=== PATIENT | male | born 1960 | race Caucasian/White ===

== ENCOUNTER → 2023-08-19 10:21 | Outpatient (REF) | payer OTHER, SELFPAY ==
[2023-08-19 12:15] LABS: Glucose 172 mg/dl (70-99)
[2023-08-19 13:11] LABS: Glycohemoglobin (HgbA1c) 7.2 % (4.0-5.6)
[2023-08-19 19:12] LABS: Prolactin 3.9 ng/ml (3.7-17.9)
== END ==
LOC: OLABN 10:21
PROVIDERS: ATTENDING PHYSICIAN Internal Medicine Geriatric Medicine
DX: E11.649 Type 2 diabetes mellitus with hypoglycemia without coma (principal); E22.1 Hyperprolactinemia
CPT/HCPCS: 36415; 82947; 83036; 84146

== ENCOUNTER → 2023-11-18 11:58 | Outpatient (REF) | payer OTHER, SELFPAY ==
[2023-11-18 12:44] LABS: Glycohemoglobin (HgbA1c) 7.7 % (4.0-5.6)
[2023-11-18 13:12] LABS: Glucose 148 mg/dl (70-99)
[2023-11-18 13:24] LABS: Prolactin 5.2 ng/ml (3.7-17.9)
== END ==
LOC: OLABN 11:58
PROVIDERS: ATTENDING PHYSICIAN Internal Medicine Geriatric Medicine
DX: E11.649 Type 2 diabetes mellitus with hypoglycemia without coma (principal); E11.9 Type 2 diabetes mellitus without complications; E22.1 Hyperprolactinemia
CPT/HCPCS: 36415; 82947; 83036; 84146

== ENCOUNTER 2023-12-17 12:49 | Inpatient (IN) | payer OTHER, SELFPAY ==
[2023-12-17] VITALS (10 sets, daily range): BP systolic 112–171; BP diastolic 65–90
--- NOTE | 2023-12-17 08:57 | ED.GENMED ---
History of Present Illness
General
Chief Complaint: Fall
Source: patient and ambulance crew
Exam Limitations: none
Time Seen by Provider: 12/17/23 08:46
Nursing documentation reviewed up to this point in time: agreed with
Travel History
Have you had any contact with someone who has COVID-19?: No
Do you have any symptoms of coronavirus? Fever > 100 degrees, chills, cough, shortness of breath, sore throat, loss of taste or smell, muscle aches, or headache?: No
History of Present Illness
History of Present Illness:
63-year-old male with a past medical history as documented notable for hypertension, hyperlipidemia, CHF, obesity who presents to the emergency room from his assisted living facility for evaluation of left hip/groin pain. Patient reports that he
occasionally ambulates at with a walker but is mostly in wheelchair at baseline. Today while he was cleaning his wheelchair he went to sit back down and missed the chair and fell onto his left hip. Unsure if he hit his head. No loss of
consciousness. He says that he injured his left hip/groin. EMS was called to the scene given patient to the hospital for assessment. He denies any headache or neck pain. Denies any back pain. He denies any chest or abdominal pain. He denies
any pain in his arms. His only complaint is pain in the left hip/groin. He is on Plavix.
Past History
Past History
ED Past Medical History: CVA, GERD, HTN, Hypercholesterolemia, IDDM, Psychiatric (Manic-depressive psychosis, anxiety) and Other (Anterior pituitary hyperfunction, psoriasis, keratosis)
ED Past Surgical History: Appendectomy
Social History
Tobacco: Non-smoker
Alcohol: None
Drug: None
Personal: Single
Living: alf
Employment: Disabled
Family History
Family History: Other (Noncontributory)
Review of Systems
Review of Systems
All Other Systems: ROS reviewed and negative except as documented in HPI and ROS
Constitutional: Denies fever
Respiratory: Denies cough or trouble breathing
Cardiac: Denies chest pain
ABD/GI: Denies abdominal pain, nausea or vomiting
: Denies flank pain
Musculoskeletal: Reports joint pain (Left hip/groin pain); Denies neck pain or back pain
Neurological: Denies headache
Phy Exam
Physical Exam
Physical Exam:
General: Awake, alert, oriented x3; no acute distress
Head: Normocephalic, atraumatic
Eyes: Conjunctiva normal, pupils equal round and reactive to light bilaterally
Throat: Airway intact, handling secretions, tongue atraumatic
Neck: Trachea midline, no cervical spine tenderness
Back: No signs of trauma to the back or flank and no tenderness in the thoracic or lumbar spine
Lungs: Clear to auscultation bilaterally, no wheezing, rales, rhonchi
Heart: Regular rate and rhythm, no murmurs, gallops, or rubs
Abd: Soft, non distended, nontender
Neuro: Cranial nerves grossly intact, speech fluid
Skin: no lacerations or abrasions
Extremities: Left lower extremity is shortened and externally rotated; significant pain with attempts at range of motion of the left hip even with slight attempts at internal/external rotation; the rest of his extremities are atraumatic and
nontender; he has good strong pulses in all extremities specifically a strong left DP pulse
Scores
Heart Failure Risk
Heart Failure Risk Score: Not Applicable
Heart Score for Chest Pain Patients
STEMI patient?: Not applicable
Withdrawal Assessment of Alcohol
Withdrawal Assessment Completed?: Not applicable
Course
Orders/Labs/Results
Orders:
Orders
12/17/23 08:53
Electrocardiogram (*1) Urgent
Reason for Study: PreOp
CT Head W/o Iv Contrast Urgent
Comment:
Reason For Exam: fall on plavix
EKG- Treatment ONCE
CR Hip - LT w/wo Pel 2-3 Vw* Urgent
Comment:
Reason For Exam: left hip pain, short/ext rotated
Include a pelvis x-ray?: Yes
12/17/23 08:58
Complete Blood Count/With Diff Urgent
Comprehensive Metabolic Panel Urgent
PTT Urgent
Prothrombin Time Urgent
Abnormal Lab Results
12/17/23
08:58
Abs Immat Gran (auto) 0.1 H 10^3/uL
(0-0.05)
Immature Gran % 1.0 H %
(0-0.5)
Lymphocytes % 16.0 L %
(20.5-51.1)
Glucose 148 H mg/dl
(70-99)
12/17/23 08:58
12/17/23 08:58
Vital Signs
Initial and Last Documented VS:
Initial Vital Signs
Temp Pulse Resp BP Pulse Ox
36.7 C 65 20 128/77 93
12/17/23 08:46 12/17/23 08:46 12/17/23 08:46 12/17/23 08:46 12/17/23 08:46
Last Documented Vital Signs
Temp Pulse Resp BP Pulse Ox
36.7 C 65 20 128/77 93
12/17/23 08:46 12/17/23 08:46 12/17/23 08:46 12/17/23 08:46 12/17/23 08:46
MDM/Problems Addressed
Differential Diagnosis Includes:
Left groin injury, left hip fracture, left hip dislocation
MDM/Problems Addressed:
63-year-old male presents for evaluation after a mechanical fall while he was transferring to wheelchair�injured his left hip/groin. Unsure of head trauma but did not lose consciousness. He is on Plavix. Vital signs normal. Exam as above. Will
check x-ray of the hip to evaluate for fracture�high clinical suspicion based on exam. Will check basic labs, screening EKG. Send for CT head. Will monitor closely reassess after the above.
X-ray of the hip reviewed independently by me shows left hip fracture. CT head no acute pathology. CBC and CMP unremarkable. Case discussed with orthopedics for evaluation. Case discussed with hospitalist for admission.
Chronic conditions affecting care:
History of stroke and is on Plavix which complicates his fall
*Radiology
Radiology exam reviewed: preliminary read by ED provider and radiology read reviewed
*Pulse Oximetry
Patient hypoxic: no
*EKG
Interpreted by ED Provider?: Yes
Heart Rate: 69
Rate: normal
Rhythm: sinus
[place]: normal axis
Interval: normal interval
QRS Pattern: normal QRS
Ischemia: other (Septal infarct age undetermined)
*Critical Care Note
Total Time (30-74mins, 75-104mins- exclusive of procedures): Not Applicable
Data Reviewed
Source: patient and ambulance crew
Patient Management
Discussion with other providers: Hospitalist (Discussed with hospitalist) and Drive Man (Discussed with orthopedics)
Escalation/DeEscalation of care consider admission/obs:
Admission indicated
ED Attending Note
-
Portions of this chart may have been created with voice recognition software.� Occasional wrong word or��sound alike� substitutions may have occurred due to the inherent limitations of voice recognition software.
Discharge Plan
Departure
Patient Disposition: Admit
Date of Disposition: 12/17/23
Time of Disposition: 09:36
Admit to doctor: Jimmy
Presentation/result/management discussed w/ accepting MD/DO: Hospitalist
Discharge Problem:
Closed fracture of left hip
Prescriptions:
No Action
atorvastatin 80 MG tablet
40 mg PO QPM
gabapentin 600 MG tablet
600 mg PO TID
metoprolol succinate 50 MG tablet extended release 24 hr
100 mg PO DAILY
lisinopril [Zestril] 20 MG tablet
20 mg PO DAILY
clonazepam 0.5 MG tablet
0.5 mg PO BID
calcium carbonate [Antacid Extra-Strength] 1 TABLET tablet,chewable
750 mg PO BID
clopidogrel 75 MG tablet
75 mg PO DAILY
dextromethorphan-guaifenesin 5 ML syrup
5 ml PO Q4HPRN PRN (Reason: Cough)
aspirin 81 MG tablet,delayed release (DR/EC)
81 mg PO DAILY
citalopram 20 MG tablet
20 mg PO DAILY
tamsulosin 0.4 MG capsule
0.4 mg PO QPM
gabapentin 800 MG tablet
800 mg PO TID
amlodipine 10 MG tablet
10 mg PO DAILY
cabergoline [Dostinex] 0.5 MG tablet
0.5 mg PO .EVERYOTHERWEDN
nitroglycerin 0.4 MG tablet, sublingual
0.4 mg sublingual [id number] PRN (Reason: Chest pain)
docusate sodium 100 MG capsule
200 mg PO DAILY
cholecalciferol (vitamin D3) 2,000 UNIT tablet
2,000 unit PO DAILY
sennosides-docusate sodium [Senna Plus] 1 EACH tablet
1 ea PO QPM
amitriptyline 50 MG tablet
50 mg PO QPM
famotidine 20 MG tablet
20 mg PO HS
omeprazole [Prilosec] 10 MG capsule,delayed release(DR/EC)
20 mg PO DAILY
insulin aspart U-100 [Novolog U-100 Insulin aspart] 1,000 UNITS/10 ML solution
4 units SC AC
montelukast 10 MG tablet
10 mg PO QPM
peg 400-propylene glycol (PF) [Systane (PF)] 1 EACH dropperette
1 ea OP BID
insulin glargine [Basaglar KwikPen U-100 Insulin] 100 UNIT/ML insulin pen
22 unit SQ HS
cholecalciferol (vitamin D3) 2,000 UNIT tablet
2,000 unit PO DAILY
psyllium husk [Reguloid (psyllium husk)] 426 GM powder
3.4 gm PO DAILY
acetaminophen 325 MG tablet
650 mg PO Q4HPRN PRN (Reason: pain)
hydrocortisone 1 APPLIC ointment
1 applic topical TIDPRN PRN (Reason: psoriasis)
magnesium hydroxide 30 ML suspension
30 ml PO HSPRN PRN (Reason: constipation )
nystatin-triamcinolone 1 APPLIC cream
1 applic S BIDPRN PRN (Reason: tinea pedis)
metformin 500 MG tablet
1,000 mg PO QPM Qty: 0 0RF
Rx Instructions:
Hold post cath, resume on Saturday eveningn 05/29
isosorbide mononitrate 30 MG tablet extended release 24 hr
30 mg PO DAILY Qty: 1 0RF
Referrals:
Declan Trent MD [Family Provider] -
Interventions
Interventions:
*Risk Screen - Suicide Last Done: 12/17/23 08:53
*General Assessment Last Done: 12/17/23 08:53
*Neglect/Abuse Screening Last Done: 12/17/23 08:53
ED- Fall Risk Assessment Last Done: 12/17/23 08:53
*ED COVID-19 Vaccine History Last Done: 12/17/23 08:53
ED-Musculoskeletal Assessment Last Done: 12/17/23 08:53
ED-Skin Assessment Last Done: 12/17/23 08:53
Discharge Date and Time
Print Language: ARABIC
[2023-12-17 09:14] LABS: % Basophils 0.7 % (0-2); % Eosinophils 4.6 % (0-6); % Monocytes 6.5 % (1.7-9.3); % Neutrophils 71.2 % (42.2-75.2); Absolute Basophils 0.1 10^3/uL (0-0.2); Absolute Eosinophils 0.4 10^3/uL (0-0.7); Absolute Immature Granulocytes 0.1 10^3/uL (0-0.05); Absolute Lymphocytes 1.5 10^3/uL (1.2-3.4); Absolute Monocytes 0.6 10^3/uL (0.1-0.6); Absolute Neutrophils 6.5 10^3/uL (1.4-6.5); Hematocrit 46.5 % (39.0-52.0); Hemoglobin 16.5 g/dL (13.0-18.0); Mean Corp Hgb Conc. 35.5 g/dL (33.0-37.0); Mean Corpuscular Hgb 30.8 pg (27.0-31.0); Mean Corpuscular Volume 86.9 fL (80.0-94.0); Mean Platelet Volume 9.8 fL (7.4-10.4); Nucleated Red Blood Cells % 0 % (-); Platelet Count 220 10^3/uL (130-400); Red Blood Cell Count 5.35 10^6/uL (4.70-6.10); Red Cell Dist. Width 13.4 % (11.5-14.5); White Blood Cell Count 9.1 10^3/uL (4.8-10.8)
[2023-12-17 09:21] LABS: INR 0.99; PT 12.9 Sec (11.4-14.6)
[2023-12-17 09:22] LABS: APTT 31.3 Sec (23.4-35.0)
[2023-12-17 09:31] LABS: ALT (SGPT) 30 U/L (0-50); AST (SGOT) 26 U/L (17-59); Albumin 4.4 g/dl (3.5-5.0); Alkaline Phosphatase 107 U/L (38-126); Blood Urea Nitrogen 11 mg/dl (9-20); Calcium 9.2 mg/dl (8.4-10.2); Carbon Dioxide 27 mmol/L (22-30); Chloride 102 mmol/L (98-107); Glucose 148 mg/dl (70-99); Sodium 138 mmol/L (135-145); Total Bilirubin 0.5 mg/dl (0.2-1.3); Total Protein 7.3 g/dl (6.3-8.2); eGFR > 60.00
[2023-12-17] MEDS: MORPHINE SULFATE 4 MG IV (09:50)
--- NOTE | 2023-12-17 11:38 | HPS.HSE ---
Family Physician
-
Family Physician: Declan Trent
Chief Complaint
-
Left hip fracture
History of Present Illness
63 y/o M with PMHx:
DM2
h/o ND
Intermittent hypoxemic respiratory insufficiency due to allergies
h/o CVA
Essential hypertension
who p/w mechanical fall resulting in a left femur fracture. Patient denies any loss of consciousness. This was a mechanical fall. Patient ambulates feel wheelchair and walker. At these times he denies any chest pain or shortness of breath.
Currently denies any chest pain or shortness of breath. Says he has some diarrhea. Denies any other acute complaints.
Medical History
Past Medical History
Past Medical History: Reports Other (as per HPI)
Past Surgical History: Reports Other (N/A)
Social History
Tobacco: Non-smoker
Alcohol: None
Drug: None
Family History
Family History: Not pertinent
Allergies / Home Medications
Allergies reflects when Allergies were last updated in [facility].
Home Medications with original date entered in [facility]
Allergy/Medication List:
Allergies
Allergy/AdvReac Type Severity Reaction Status Date / Time
No Known Allergies Allergy Verified 12/17/23 08:52
Home Medications
amlodipine 10 mg tablet 10 mg PO DAILY Blood Pressure 10/07/17
citalopram 20 mg tablet 20 mg PO DAILY Mental Health 10/07/17
clonazepam 0.5 mg tablet 0.5 mg PO BID Mental Health/Anxiety 10/07/17
clopidogrel 75 mg tablet 75 mg PO DAILY Blood Clot Prevention/Tx 10/07/17
gabapentin 800 mg tablet 800 mg PO TID Pain 10/07/17
lisinopril 20 mg tablet (Zestril) 20 mg PO DAILY Blood Pressure 10/07/17
nitroglycerin 0.4 mg sublingual tablet 0.4 mg sublingual [id number] PRN Chest pain 10/07/17
tamsulosin 0.4 mg capsule 0.4 mg PO QPM Urinary Issue 10/07/17
acetaminophen 325 mg tablet 650 mg PO Q4HPRN PRN mild pain 05/27/19
amitriptyline 50 mg tablet 50 mg PO HS Neurological Condition 05/27/19
famotidine 20 mg tablet 20 mg PO DAILY Gastrointestinal Issue 05/27/19
insulin aspart U-100 100 unit/mL subcutaneous solution (Novolog U-100 Insulin aspart) 6 units SC AC Diabetes 05/27/19
insulin glargine 100 unit/mL (3 mL) subcutaneous pen (Basaglar KwikPen U-100 Insulin) 32 unit SQ HS Diabetes 05/27/19
atorvastatin 10 mg tablet 10 mg PO QPM High Cholesterol 12/17/23
cabergoline 0.5 mg tablet 0.25 mg PO TU@1830 Neurological Condition 12/17/23
cholecalciferol (vitamin D3) 1,250 mcg (50,000 unit) tablet 1,250 mcg PO QMONTH Supplement 12/17/23
dextromethorphan-guaifenesin 10 mg-100 mg/5 mL oral liquid (Diabetic Tussin DM) 10 ml PO Q4HPRN PRN cough 12/17/23
ferrous sulfate 325 mg (65 mg iron) tablet 325 mg PO MOWEFR Supplement 12/17/23
fluticasone propionate 50 mcg/actuation nasal spray,suspension 1 spray intranasal DAILY Congestion 12/17/23
gabapentin 400 mg capsule 400 mg PO TID Pain 12/17/23
isosorbide mononitrate 30 mg tablet,extended release 24 hr 30 mg PO DAILY Heart Disease/Condition 12/17/23
magnesium hydroxide 400 mg/5 mL oral suspension (Milk of Magnesia) 30 ml PO HSPRN PRN constipation 12/17/23
melatonin 3 mg tablet 3 mg PO HS Sleep 12/17/23
metformin 500 mg tablet,extended release 24 hr 1,000 mg PO QPM Diabetes 12/17/23
metoprolol succinate 100 mg tablet,extended release 24 hr 100 mg PO DAILY Blood Pressure 12/17/23
sodium chloride 0.65 % nasal spray aerosol (Saline Nasal Mist) 1 spray intranasal Q1HPRN PRN CONGESTION 12/17/23
triamcinolone acetonide 0.1 % topical cream 1 applic topical BIDPRN PRN eczema 12/17/23
Review of Systems
-
History Source: Patient
A 12 point ROS was completed and negative except as noted: Yes
Physical Exam
Vital Signs
Vital Signs
Temp Pulse Resp BP Pulse Ox
98.1 F 65 12 128/78 91
12/17/23 08:46 12/17/23 10:30 12/17/23 10:30 12/17/23 10:00 12/17/23 10:30
Physical Exam
General: Other (.)
Laboratory Results
-
12/17/23 08:58
12/17/23 08:58
Laboratory Results
PT 12.9 Sec (11.4-14.6) 12/17/23 08:58
INR 0.99 12/17/23 08:58
APTT 31.3 Sec (23.4-35.0) 12/17/23 08:58
Total Bilirubin 0.5 mg/dl (0.2-1.3) 12/17/23 08:58
AST 26 U/L (17-59) 12/17/23 08:58
ALT 30 U/L (0-50) 12/17/23 08:58
Alkaline Phosphatase 107 U/L (38-126) 12/17/23 08:58
Impression/Plan
-
Gen: NAD, AAOx3.
Eyes: EOMI, PERRLA, no scleral icterus.
Neck: supple.
CV: RRR, +S1/S2, no m/r/g.
Resp: CTAB, no rales, wheezes, or rhonchi.
Abd: +BS, soft, NT, ND
Skin: No rashes.
Neuro: CN 2-12 intact, non-focal.
Psych: Normal mood and affect.
L hip Xray: Transcervical left femoral neck fracture with mild displacement and varus angulation. No definite intra-articular or intertrochanteric extension or dislocation. Mild degenerative changes of both hips. Mild degenerative changes of the
pubis symphysis, bilateral sacroiliac joints and partially visualized lower lumbar spine. Soft tissues are grossly unremarkable.
CT brain: There are no acute intracranial abnormalities. There is moderate cerebellar atrophy and mild supratentorial cortical atrophy. 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
Acute L femoral neck fx:
-c/s ortho
-hold plavix
-ECG (read by me): NSR @ 69, evidence of prior inferior infarct with Q waves in II, III, and aVF, TWi I and aVL, no acute ST changes
-RCRI = 1, 6% risk of ND/cardiac arrest within 30 days. MET < 4. Recommend proceeding with planned orthopedic surgery as benefit greatly outweighs the risk at this time.
Other problems:
DM2: cont Basaglar/Premeal Novolog, SSI/accuchecks. Hold Metformin. If pt is NPO will decrease insulin dosages by ~40%. Check a1c.
h/o ND: cont statin/BB, hold plavix
Intermittent hypoxemic respiratory insufficiency due to allergies: NC O2 PRN
h/o CVA: Hold plavix for OR, cont statin
Essential hypertension: Cont Norvasc/Imdur/ACEi/BB
DNR - confirmed with pt in the ER
Lovenox
[2023-12-17 12:57] LABS: Glucose - Point of Care 116 mg/dl (70-99)
--- NOTE | 2023-12-17 14:00 | PTCARENOTE ---
Patient admitted from [facility] for a fractured left femur.He is alert and oriented.he rates his pain at a 7 out of 10.Vital signs are stable.The patient is in his bed with the call glynn in reach.
[2023-12-17 15:49] LABS: Glucose - Point of Care 125 mg/dl (70-99)
[2023-12-17] MEDS: MORPHINE SULFATE 2 MG IV ×2 (17:07→21:33)
[2023-12-17] MEDS: FLOMAX 0.400000000000000022 MG PO (17:09)
[2023-12-17] MEDS: TYLENOL 650 MG PO ×3 (17:09→23:47)
[2023-12-17] MEDS: NEURONTIN 800 MG PO ×2 (17:10→21:30)
[2023-12-17] MEDS: LIPITOR 10 MG PO (17:10)
[2023-12-17] MEDS: NEURONTIN 400 MG PO ×2 (17:10→21:29)
[2023-12-17] MEDS: NOVOLOG FLEXPEN-HIGH RESISTANCE 1 UNITS SC (17:11)
[2023-12-17] MEDS: LOVENOX 40 MG SC (17:16)
[2023-12-17] MEDS: NOVOLOG FLEXPEN 6 UNITS SC (18:02)
[2023-12-17] MEDS: COLACE PO (21:27)
[2023-12-17] MEDS: MELATONIN 3 MG PO (21:28)
[2023-12-17] MEDS: KLONOPIN 0.5 MG PO (21:28)
[2023-12-17] MEDS: SENOKOT PO (21:28)
[2023-12-17] MEDS: ELAVIL 50 MG PO (21:28)
[2023-12-17 21:30] LABS: Glucose - Point of Care 118 mg/dl (70-99)
[2023-12-17] MEDS: LANTUS 0.320000000000000007 UNITS SC (21:33)
[2023-12-17] MEDS: BENADRYL 6.25 MG IV (23:44)
[2023-12-18] VITALS (12 sets, daily range): BP systolic 122–179; BP diastolic 78–109; BMI 30.7
--- NOTE | 2023-12-18 04:46 | PTCARENOTE ---
Pts Bp was elevated at 175/94. Bp was checked manually and was 170/90. house [employer] notified. was ordered to administer 0800 norvasc at 0430. waiting for pharmacy to verify.
[2023-12-18] MEDS: NORVASC 10 MG PO (04:54)
[2023-12-18] MEDS: TYLENOL PO ×3 (04:57→21:34)
--- NOTE | 2023-12-18 07:21 | CON.ORTHO ---
Consultation
-
Date/Time Consultation Requested: 12/17/2023 1430
Date/Time Consultation Performed: 12/18/2023 0700
Requesting Provider: Cristi Grove
Performing Provider: Zay Childers
Reason for Consultation: Left hip fracture
Consultation - Orthopedics
History
Orthopedic Surgery Note
CC: Left hip pain
HPI: 63-year-old male presents with left hip pain after sustaining a fall. He was fixing his wheelchair and landed on the left side and had severe pain. He was brought to the emergency department where x-rays showed signs of displaced left femoral
neck fracture. He has a history of stroke affecting the left side and has left-sided weakness. He ambulates with a walker and a wheelchair. He denies a history of falls.
PMH/PSH: h/o CVA, HTN, DMII
Medications: reviewed; plavix
Family History: Family history was reviewed. Noncontributory
Social history: Nonsmoker, no illicit drugs
Exam
General appearance: Pleasant. No acute distress.
Head: Normocephalic/atraumatic
Nose: No lesions or discharge.
Skin: No obvious rashes or open wounds
Lungs: No audible wheezing, no cough or sputum production
Musculoskeletal:
LLE:
skin intact without open wounds
fires ehl/fhl/ta/gs with weakness
sensation intact to light touch distally s/s/sp/dp/t
Toes wwp, 1+ DP
Left hip short and externally rotated
Imaging:
Xrays of left hip and pelvis show signs of displaced femoral neck fracture on the left. No signs of pelvic ring injury.
Assessment and plan:
63-year-old male with a left displaced femoral neck fracture after sustaining a fall. I discussed treatment options with the patient including ORIF versus arthroplasty. Given the displacement of the femoral neck fracture and his comorbidities, we
discussed the higher likelihood of successful return to function and reduction of pain with arthroplasty. We discussed total hip arthroplasty versus left Joni hip arthroplasty. We discussed the risks and benefits of each. Given his limited
functional status and his weakness on the left side, we discussed hemiarthroplasty to reduce the risk of dislocation. Shared decision was to proceed with left hip hemiarthroplasty today. All questions were answered.
Zay Childers MD
> 75 minutes was spent reviewing the clinical information, evaluating the patient, and formulating clinical plan.
Allergies / Home Medications
Allergy/AdvReac Type Severity Reaction Status Date / Time
No Known Allergies Allergy Verified 12/17/23 08:52
�Medication �Instructions �Recorded
amlodipine 10 mg tablet 10 mg PO DAILY Blood Pressure 10/07/17
citalopram 20 mg tablet 20 mg PO DAILY Mental Health 10/07/17
clonazepam 0.5 mg tablet 0.5 mg PO BID Mental Health/Anxiety 10/07/17
clopidogrel 75 mg tablet 75 mg PO DAILY Blood Clot 10/07/17
Prevention/Tx
gabapentin 800 mg tablet 800 mg PO TID Pain 10/07/17
lisinopril 20 mg tablet (Zestril) 20 mg PO DAILY Blood Pressure 10/07/17
nitroglycerin 0.4 mg sublingual 0.4 mg sublingual [id number] PRN 10/07/17
tablet Chest pain
tamsulosin 0.4 mg capsule 0.4 mg PO QPM Urinary Issue 10/07/17
acetaminophen 325 mg tablet 650 mg PO Q4HPRN PRN mild pain 05/27/19
amitriptyline 50 mg tablet 50 mg PO HS Neurological Condition 05/27/19
famotidine 20 mg tablet 20 mg PO DAILY Gastrointestinal 05/27/19
Issue
insulin aspart U-100 100 unit/mL 6 units SC AC Diabetes 05/27/19
subcutaneous solution (Novolog
U-100 Insulin aspart)
insulin glargine 100 unit/mL (3 32 unit SQ HS Diabetes 05/27/19
mL) subcutaneous pen (Basaglar
KwikPen U-100 Insulin)
atorvastatin 10 mg tablet 10 mg PO QPM High Cholesterol 12/17/23
cabergoline 0.5 mg tablet 0.25 mg PO TU@1830 Neurological 12/17/23
Condition
cholecalciferol (vitamin D3) 1,250 1,250 mcg PO QMONTH Supplement 12/17/23
mcg (50,000 unit) tablet
dextromethorphan-guaifenesin 10 10 ml PO Q4HPRN PRN cough 12/17/23
mg-100 mg/5 mL oral liquid
(Diabetic Tussin DM)
ferrous sulfate 325 mg (65 mg 325 mg PO MOWEFR Supplement 12/17/23
iron) tablet
fluticasone propionate 50 1 spray intranasal DAILY Congestion 12/17/23
mcg/actuation nasal
spray,suspension
gabapentin 400 mg capsule 400 mg PO TID Pain 12/17/23
isosorbide mononitrate 30 mg 30 mg PO DAILY Heart 12/17/23
tablet,extended release 24 hr Disease/Condition
magnesium hydroxide 400 mg/5 mL 30 ml PO HSPRN PRN constipation 12/17/23
oral suspension (Milk of Magnesia)
melatonin 3 mg tablet 3 mg PO HS Sleep 12/17/23
metformin 500 mg tablet,extended 1,000 mg PO QPM Diabetes 12/17/23
release 24 hr
metoprolol succinate 100 mg 100 mg PO DAILY Blood Pressure 12/17/23
tablet,extended release 24 hr
sodium chloride 0.65 % nasal spray 1 spray intranasal Q1HPRN PRN 12/17/23
aerosol (Saline Nasal Mist) CONGESTION
triamcinolone acetonide 0.1 % 1 applic topical BIDPRN PRN eczema 12/17/23
topical cream
Vital Signs / Lab Results
Temp Pulse Resp BP Pulse Ox
98.1 F 80 18 170/90 92
12/18/23 03:43 12/18/23 04:54 12/18/23 03:43 12/18/23 04:54 12/18/23 03:43
12/17/23 08:58
12/17/23 08:58
--- NOTE | 2023-12-18 07:31 | W.PN.HOSP.TC ---
Today's Communication/Plan
-
OR today
Assessment / Plan
Assessment / Plan
Gen: NAD, AAOx3.
Eyes: EOMI, PERRLA, no scleral icterus.
Neck: supple.
CV: remains RRR, +S1/S2, no m/r/g.
Resp: remains CTAB, no rales, wheezes, or rhonchi.
Abd: remains +BS, soft, NT, ND
Skin: No rashes.
Neuro: CN 2-12 intact, non-focal.
Psych: Normal mood and affect.
L hip Xray: Transcervical left femoral neck fracture with mild displacement and varus angulation. No definite intra-articular or intertrochanteric extension or dislocation. Mild degenerative changes of both hips. Mild degenerative changes of the
pubis symphysis, bilateral sacroiliac joints and partially visualized lower lumbar spine. Soft tissues are grossly unremarkable.
CT brain: There are no acute intracranial abnormalities. There is moderate cerebellar atrophy and mild supratentorial cortical atrophy. 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
Acute L femoral neck fx:
-ortho following for surgical repair. As per pt, he is going to the OR today.
-holding plavix
-ECG (read by me): NSR @ 69, evidence of prior inferior infarct with Q waves in II, III, and aVF, TWi I and aVL, no acute ST changes
-RCRI = 1, 6% risk of VT/cardiac arrest within 30 days. MET < 4. Recommend proceeding with planned orthopedic surgery as benefit greatly outweighs the risk at this time.
Other problems:
DM2: recent a1c 7.7%. Cont Basaglar/Premeal Novolog, SSI/accuchecks. Hold Metformin. If pt is NPO will decrease insulin dosages by ~40%.
h/o VT: cont statin/BB, holding plavix
Intermittent hypoxemic respiratory insufficiency due to allergies: NC O2 PRN
h/o CVA: Holding plavix for OR, cont statin
Essential hypertension: Cont Norvasc/Imdur/ACEi/BB
DNR - confirmed with pt in the ER
Lovenox
Anticipated Discharge: 24 - 48 hours
Subjective/Interval History
-
Date of Service: December 18, 2023
c/o nausea. Denies CP/SOB.
Objective Data
-
Vital Signs:
Vital Signs
Temp Pulse Resp BP Pulse Ox
98.1 F 80 18 170/90 92
12/18/23 03:43 12/18/23 04:54 12/18/23 03:43 12/18/23 04:54 12/18/23 03:43
I&O
12/17/23 12/18/23 12/19/23
06:59 06:59 06:59
Output Total 200 / 200
Balance -200 / -200
[2023-12-18] MEDS: KLONOPIN 0.5 MG PO ×2 (08:57→21:37)
[2023-12-18] MEDS: ZESTRIL 20 MG PO (08:57)
[2023-12-18] MEDS: TOPROL XL 100 MG PO (08:57)
[2023-12-18] MEDS: PEPCID 20 MG PO (08:59)
[2023-12-18] MEDS: NEURONTIN 400 MG PO ×2 (08:59→21:37)
[2023-12-18] MEDS: SENOKOT 17.1999999999999993 MG PO (08:59)
[2023-12-18] MEDS: TYLENOL 650 MG PO ×3 (08:59→23:50)
[2023-12-18] MEDS: IMDUR (EXTENDED RELEASE) 30 MG PO (09:00)
[2023-12-18] MEDS: NEURONTIN 800 MG PO ×2 (09:00→21:38)
[2023-12-18] MEDS: CELEXA 20 MG PO (09:00)
[2023-12-18] MEDS: COLACE 100 MG PO (09:00)
[2023-12-18] MEDS: NOVOLOG FLEXPEN-HIGH RESISTANCE 4 UNITS SC ×2 (09:01→14:42)
[2023-12-18 09:02] LABS: Glucose - Point of Care 204 mg/dl (70-99)
[2023-12-18] MEDS: NOVOLOG FLEXPEN SC ×2 (09:36→22:07)
[2023-12-18 13:23] LABS: Glucose - Point of Care 226 mg/dl (70-99)
--- NOTE | 2023-12-18 14:08 | CM ---
Initial assessment completed with patient who resides at [facility] for the past 14 years S/P CVA. He has a 4 wheel walker and a W/CH. He tends to use the W/CH more often. He receives restorative PT/OT. He needed assistance for set up for
meals and bathing but able to feed self and self groom. No history of Psychiatric hospitalizations. [facility] supplies medications and physician services. Anticipate return to [facility] for resumption of LTC. [facility] liaison notified. Updated
referral forwarded.
[2023-12-18] MEDS: NOVOLOG FLEXPEN 6 UNITS SC (14:43)
[2023-12-18] MEDS: ROXICODONE 5 MG PO (14:47)
--- NOTE | 2023-12-18 17:47 | OR.RPT ---
Operative Report
Operative Report
Orthopaedic Surgery Operative Note
DATE OF OPERATION: 12/18/2023
PREOPERATIVE DIAGNOSES: Displaced femoral neck fracture, left
POSTOPERATIVE DIAGNOSES: Same
OPERATION PERFORMED: Left hip hemiarthroplasty
SURGEON: Alexis Childers MD
LIGHT EQUIPMENT OPERATOR: Tara Mendez PA-C who helped with patient and limb positioning and retraction
ANESTHESIA: General
COMPLICATIONS: None.
ESTIMATED BLOOD LOSS: 100 mL.
DRAINS: None
SPECIMEN: None
FINDINGS: Displaced fracture of the femoral neck
IMPLANTS: [employer] stem size 16, extended offset, Size 52 Endo unipolar head, DJO bone cement, large cement restrictor, distal centralizer
INDICATIONS: The patient presented to the emergency department after a fall sustained at his care facility with new onset hip pain. Xrays showed a displaced femoral neck fracture. I discussed treatment options with the patient and discussed that
based on the degree of displacement that fixation of the fracture may have a high risk of complication and failure. I discussed surgical treatment with arthroplasty. Based on the patient�s stroke history and activity level, shared decision was to
proceed with hemiarthroplasty primarily to reduce risk of instability. I reviewed the risks, benefits, and alternatives of various treatment options. The patient understood the risks which included, but were not limited to, bleeding, infection,
failure to relieve pain, more pain than preop, damage to blood vessels and nerves, need for reoperation, mechanical failure of the implants, wound healing problems, stiffness, instability, blood clot, pulmonary embolism, myocardial infarction,
pneumonia, arrhythmia, CVA, and . The patient accepted these risks and wished to proceed. All questions were answered, and informed consent was obtained.
PROCEDURE IN DETAIL:
The patient was identified in the preoperative holding area. The left hip was identified as the operative site. The patient was taken in the operating room and transferred to the operative table. General anesthesia was performed. IV antibiotics and
tranexamic acid were administered. The patient was placed in the lateral position with Stulberg hip positioners. Axillary roll was placed. The down leg was well padded. All bony prominences were well padded. The operative limb was prepped and draped
in the usual sterile fashion.
Time out was performed. A posterolateral approach to the hip was used. The skin incision was centered over the greater trochanter. This was taken down sharply through subcutaneous tissues. Meticulous hemostasis was achieved throughout the case with
electrocautery. We split the fascia david in line with skin incision. I split the gluteus melvin bluntly. We cauterized all crossing vessels as we split it. I palpated the sciatic nerve and made sure it was well posterior in the operative field. It
was protected throughout the case.
The posterior anatomy was distorted due to fracture hematoma and swelling. I performed a partial bursectomy to identify the short external rotators. The gluteus medius and minimus were identified and retracted anteriorly. I incised the piriformis
tendon and conjoint tendon at their insertions. These were tagged for later repair. I then performed a trapezoidal capsulotomy. The edges were tagged for later repair.
The femoral neck fracture was identified. The leg was flexed and internally rotated, and a fresh femoral neck cut was performed. The femur was translated anteriorly. Care was taken to preserve the labrum. The femoral head was carefully removed with
a clemente and a tenaculum. The head measured to be 52mm. The acetabulum was inspected and noted not to have marked degenerative changes. A trial head was placed in the acetabulum and size 52 had appropriate fit and suction fit.
Attention was turned to the femur. Box osteotome and Charnley awe were used to open the canal. The femur was sequentially broached to size 16 which had appropriate fit and fill. A trial head was placed with extended offset neck and the hip was
reduced. Leg length and offset were checked and found to be appropriate. The hip was taken through complete range of motion and found to be stable in extension, the position of sleep, and at 90 degrees of flexion and internal rotation.
Trials were removed and the femoral canal was prepared with irrigation and ribbon gauze packing sequentially. A cement restrictor was placed into the femoral canal 1cm distal to the tip of the femoral stem. This was measured off the trial femoral
stem. Once the femoral canal was prepared, the cement was mixed. Once doughy in consistency, the cement was pressurized into the canal with a cement gun. The stem was then carefully inserted into the canal with care to minimize rotation or
micromotion. Excess cement was removed. Once the cement was polymerized, the joint was irrigated copiously. The acetabulum was inspected to be free of cement particles and other debris. The final head was impacted onto clean and dry trunion and the
hip was reduced. Leg length and stability were checked again and found to be acceptable. The sciatic nerve was inspected and noted to be free of tension and uninjured.
A dilute betadine soak was performed for approximately 3 minutes, and then the hip was copiously irrigated. I repaired the capsule, piriformis, and conjoint tendon with #2 Ethibond to drill holes in the greater trochanter. Local anesthetic was
injected. The fascia david was closed with #1 PDS in running fashion. The subcutaneous tissues were closed with 2-0 PDS in running fashion. The skin was reapproximated with 3-0 Monocryl subcuticular suture. I placed a Prineo dressing followed by a
Mepilex Ag dressing. The patient awoke from anesthesia without difficulty. Sponge and instrument counts were correct x2 at the end of the case.
I was present and participated in the entire procedure. The patient was sent to the recovery room in stable condition.
Zay Childers MD
[2023-12-18 18:00] LABS: Glucose - Point of Care 190 mg/dl (70-99)
--- NOTE | 2023-12-18 18:45 | PTCARENOTE ---
Pt arrived via bed from PACU. Pt AAOX3. Complains of no pain. VSS. Pt on 5L NC. Pts daughter at bedside. Mepilex C/D/I. Neuro checks WNL
[2023-12-18] MEDS: FEOSOL PO (21:33)
[2023-12-18] MEDS: NEURONTIN PO ×2 (21:34)
[2023-12-18] MEDS: COLACE PO (21:36)
[2023-12-18] MEDS: SENOKOT PO (21:36)
[2023-12-18] MEDS: ELAVIL 50 MG PO (21:37)
[2023-12-18] MEDS: FLOMAX 0.400000000000000022 MG PO (21:37)
[2023-12-18] MEDS: LIPITOR 10 MG PO (21:38)
[2023-12-18] MEDS: MELATONIN 3 MG PO (21:38)
[2023-12-18] MEDS: BACTROBAN 2% OINTMENT 1 APPLIC NASAL (21:40)
[2023-12-18] MEDS: LOVENOX 40 MG SC (21:40)
[2023-12-18 21:51] LABS: Glucose - Point of Care 230 mg/dl (70-99)
[2023-12-18] MEDS: LANTUS 0.320000000000000007 UNITS SC (21:54)
[2023-12-18] MEDS: NOVOLOG FLEXPEN-HIGH RESISTANCE SC (22:08)
[2023-12-18] MEDS: ANCEF 5 IV (23:48)
[2023-12-19] VITALS (7 sets, daily range): BP systolic 130–187; BP diastolic 67–96; PULSE 77; O2SAT 92; BMI 31.9
[2023-12-19] MEDS: TYLENOL PO (04:35)
--- NOTE | 2023-12-19 07:18 | W.PN.ORTHO ---
Today's Communication / Plan
-
PT/OT
Weightbearing as tolerated
Hip precautions
Aspirin for DVT prophylaxis
Return to office 2 weeks postop
Likely Santhosh Worthy once medically stable
Assessment
.
Distal Motor Intact: Yes
Dressing:
Clean, dry and intact.
Plan
.
Surgery / Date: L hip hemiarthroplasty 12/17 [facility]
DVT Prophylaxis: Aspirin
Activity:
Out of bed.
PT/OT
Discharge Plan: SNF
Subjective
.
.:
Patient resting comfortably.
Vital Signs and Labs
.
Vital Signs and Labs:
Lab Results
12/17/23 08:58
12/17/23 08:58
Temp Pulse Resp BP Pulse Ox
99.1 F 79 16 162/87 92
12/19/23 03:19 12/19/23 03:19 12/19/23 03:19 12/19/23 03:19 12/19/23 03:19
PT 12.9 Sec (11.4-14.6) 12/17/23 08:58
INR 0.99 12/17/23 08:58
Non-invasive Hgb result: 13.2
[2023-12-19 07:50] LABS: Glucose - Point of Care 184 mg/dl (70-99)
[2023-12-19] MEDS: NOVOLOG FLEXPEN-HIGH RESISTANCE 2 UNITS SC ×2 (07:57→16:53)
[2023-12-19] MEDS: NOVOLOG FLEXPEN 6 UNITS SC ×3 (07:59→16:53)
[2023-12-19] MEDS: ANCEF 5 IV (08:01)
[2023-12-19] MEDS: IMDUR (EXTENDED RELEASE) 30 MG PO (08:02)
[2023-12-19] MEDS: CELEXA 20 MG PO (08:02)
[2023-12-19] MEDS: ZESTRIL 20 MG PO ×2 (08:02→10:06)
[2023-12-19] MEDS: ASPIR LOW (ENTERIC COATED) 81 MG PO (08:02)
[2023-12-19] MEDS: KLONOPIN 0.5 MG PO ×2 (08:03→21:40)
[2023-12-19] MEDS: TYLENOL 650 MG PO ×4 (08:03→21:39)
[2023-12-19] MEDS: SENOKOT PO ×4 (08:03→22:06)
[2023-12-19] MEDS: NEURONTIN 400 MG PO ×3 (08:04→21:39)
[2023-12-19] MEDS: TOPROL XL 100 MG PO (08:04)
[2023-12-19] MEDS: PEPCID 20 MG PO (08:05)
[2023-12-19] MEDS: NEURONTIN 800 MG PO ×3 (08:05→21:39)
[2023-12-19] MEDS: BACTROBAN 2% OINTMENT 1 APPLIC NASAL ×2 (08:05→21:40)
[2023-12-19] MEDS: COLACE PO ×4 (08:05→22:05)
[2023-12-19] MEDS: NORVASC 10 MG PO (08:28)
[2023-12-19] MEDS: APRESOLINE 10 MG IV (08:29)
--- NOTE | 2023-12-19 09:20 | W.PN.HOSP.TC ---
Today's Communication/Plan
-
see bold
Assessment / Plan
Assessment / Plan
Gen: NAD, AAOx3.
Eyes: EOMI, PERRLA, no scleral icterus.
Neck: supple.
CV: Continues to remain RRR, +S1/S2, no m/r/g.
Resp: Continues to remain CTAB, no rales, wheezes, or rhonchi.
Abd: Continues to remain +BS, soft, NT, ND
Skin: No rashes.
Neuro: CN 2-12 intact, non-focal.
Psych: Normal mood and affect.
L hip Xray: Transcervical left femoral neck fracture with mild displacement and varus angulation. No definite intra-articular or intertrochanteric extension or dislocation. Mild degenerative changes of both hips. Mild degenerative changes of the
pubis symphysis, bilateral sacroiliac joints and partially visualized lower lumbar spine. Soft tissues are grossly unremarkable.
CT brain: There are no acute intracranial abnormalities. There is moderate cerebellar atrophy and mild supratentorial cortical atrophy. 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
Acute L femoral neck fx:
-s/p Left hip hemiarthroplasty on 12/18/23
Acute hypoxemic respiratory failure:
-pt was requiring up to 5L NC O2, now weaned to room air
-afebrile
-check CXR
-IS
Other problems:
DM2: recent a1c 7.7%. Cont Basaglar/Premeal Novolog, SSI/accuchecks. Holding Metformin.
h/o [place]: cont statin/BB, resume plavix
Intermittent hypoxemic respiratory insufficiency due to allergies: NC O2 PRN
h/o CVA: resume plavix, cont statin
Essential hypertension: Cont Norvasc/Imdur/BB. Increase Lisinopril to 40mg daily. IV Hydralazine PRN.
DNR - confirmed with pt in the ER
Lovenox
Anticipated Discharge: Within 24 hours
Subjective/Interval History
-
Date of Service: December 19, 2023
Patient complains of anxiety and epigastric discomfort.
Objective Data
-
Vital Signs:
Vital Signs
Temp Pulse Resp BP Pulse Ox
98.4 F 80 18 189/97 90
12/19/23 07:00 12/19/23 08:29 12/19/23 07:00 12/19/23 08:29 12/19/23 07:00
I&O
12/18/23 12/19/23 12/20/23
06:59 06:59 06:59
Intake Total 1180 / 1180
Output Total 200 / 200 600 / 600
Balance -200 / -200 580 / 580
[2023-12-19] MEDS: PLAVIX 75 MG PO (09:32)
[2023-12-19 10:21] LABS: Hematocrit 49.7 % (39.0-52.0); Hemoglobin 17.9 g/dL (13.0-18.0); Mean Corpuscular Hgb 30.7 pg (27.0-31.0); Mean Corpuscular Volume 85.2 fL (80.0-94.0); Mean Platelet Volume 9.4 fL (7.4-10.4); Platelet Count 267 10^3/uL (130-400); Red Blood Cell Count 5.83 10^6/uL (4.70-6.10); Red Cell Dist. Width 13.8 % (11.5-14.5); White Blood Cell Count 22.7 10^3/uL (4.8-10.8)
[2023-12-19 10:34] LABS: Blood Urea Nitrogen 23 mg/dl (9-20); Calcium 9.5 mg/dl (8.4-10.2); Carbon Dioxide 28 mmol/L (22-30); Chloride 96 mmol/L (98-107); Estimated Creatinine Clearance > 125 ml/min; Glucose 168 mg/dl (70-99); Sodium 137 mmol/L (135-145); eGFR > 60.00
[2023-12-19 11:26] LABS: Glucose - Point of Care 200 mg/dl (70-99)
--- NOTE | 2023-12-19 11:28 | CM ---
chart reviewed: afebrile; weaned off O2; PT/OT eval pending; CXR result pending
Plan: return to [facility] when cleared for discharge
[2023-12-19] MEDS: NOVOLOG FLEXPEN-HIGH RESISTANCE 4 UNITS SC (12:35)
[2023-12-19 16:44] LABS: Glucose - Point of Care 166 mg/dl (70-99)
[2023-12-19] MEDS: LOVENOX 40 MG SC (16:51)
[2023-12-19] MEDS: LIPITOR 10 MG PO (16:51)
[2023-12-19] MEDS: FLOMAX 0.400000000000000022 MG PO (16:52)
[2023-12-19 21:30] LABS: Glucose - Point of Care 107 mg/dl (70-99)
[2023-12-19] MEDS: ELAVIL 50 MG PO (21:39)
[2023-12-19] MEDS: MELATONIN 3 MG PO (21:40)
[2023-12-19] MEDS: LANTUS 0.320000000000000007 UNITS SC (21:40)
[2023-12-20] MEDS: TYLENOL PO ×2 (00:46→05:06)
--- NOTE | 2023-12-20 06:43 | W.PN.ORTHO ---
Today's Communication / Plan
-
PT/OT
Weightbearing as tolerated to LLE
Hip precautions
Hgb this AM currently pending. Continue to monitor and trend.
Aspirin for DVT prophylaxis
Return to office 2 weeks postop
Likely Santhosh Worthy once medically stable
Assessment
.
Distal Motor Intact: Yes
Dressing:
Clean, dry and intact.
Assessment:
POD 2 Left Hip Hemiarthroplasty 12/17 Dr. Childers
Plan
.
Surgery / Date: L hip hemiarthroplasty 12/17 Lis[facility]
DVT Prophylaxis: Aspirin
Activity:
Out of bed.
PT/OT
Discharge Plan: SNF
Subjective
.
.:
Patient resting comfortably.
Vital Signs and Labs
.
Vital Signs and Labs:
Temp Pulse Resp BP Pulse Ox
98.6 F 91 18 136/71 94
12/19/23 23:05 12/19/23 23:05 12/19/23 23:05 12/19/23 23:05 12/19/23 23:05
PT 12.9 Sec (11.4-14.6) 12/17/23 08:58
INR 0.99 12/17/23 08:58
Non-invasive Hgb result: 13.2
[2023-12-20 07:16] LABS: Glucose - Point of Care 134 mg/dl (70-99)
--- NOTE | 2023-12-20 07:19 | W.PN.HOSP.TC ---
Addendum entered and electronically signed by Alexis Jenkins MD 12/20/23 11:31:
Total time spent on d/c = 35 min. This included today's physical exam, progress note, review of laboratory and diagnostic data, preparation of discharge documents and prescriptions, and discussions about the pt's hospital course and discharge plan
with the patient and other mobile paramedical examiner involved in the patient's care.
Addendum entered and electronically signed by Alexis Jenkins MD 12/20/23 09:08:
Leukocytosis is likely reactive and is improving. Patient is afebrile and without evidence of acute infection. Medically cleared for discharge. Case management aware.
Original Note:
Today's Communication/Plan
-
possible d/c later today
Assessment / Plan
Assessment / Plan
Gen: NAD, AAOx3.
Eyes: EOMI, PERRLA, no scleral icterus.
Neck: supple.
CV: RRR, +S1/S2, no m/r/g.
Resp: CTAB, no rales, wheezes, or rhonchi.
Abd: +BS, soft, NT, ND
Skin: No rashes.
Neuro: CN 2-12 intact, non-focal.
Psych: Normal mood and affect.
L hip Xray: Transcervical left femoral neck fracture with mild displacement and varus angulation. No definite intra-articular or intertrochanteric extension or dislocation. Mild degenerative changes of both hips. Mild degenerative changes of the
pubis symphysis, bilateral sacroiliac joints and partially visualized lower lumbar spine. Soft tissues are grossly unremarkable.
CT brain: There are no acute intracranial abnormalities. There is moderate cerebellar atrophy and mild supratentorial cortical atrophy. 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
CXR: No acute disease of the chest. Moderate left lower lobe atelectasis versus scarring. New
Acute L femoral neck fx:
-s/p Left hip hemiarthroplasty on 12/18/23
Acute hypoxemic respiratory failure:
-pt was requiring up to 5L NC O2, now weaned to room air
-afebrile
-CXR without PNA
-IS
Other problems:
DM2: recent a1c 7.7%. Cont Basaglar/Premeal Novolog, SSI/accuchecks. Holding Metformin.
h/o [place]: cont statin/BB, resume plavix
Intermittent hypoxemic respiratory insufficiency due to allergies: NC O2 PRN
h/o CVA: resume plavix, cont statin
Essential hypertension: Cont Norvasc/Imdur/BB/Lisinopril (increased dose). IV Hydralazine PRN.
DNR - confirmed with pt in the ER
Lovenox
Anticipated Discharge: Within 24 hours
Subjective/Interval History
-
Date of Service: December 20, 2023
No new complaints.
Objective Data
-
Labs:
Laboratory Results
12/20/23
06:00
WBC Pending
Hgb Pending
Hct Pending
Plt Count Pending
Sodium Pending
Potassium Pending
Chloride Pending
Carbon Dioxide Pending
BUN Pending
Creatinine Pending
Glucose Pending
Calcium Pending
Vital Signs:
Vital Signs
Temp Pulse Resp BP Pulse Ox
98.6 F 91 18 136/71 94
12/19/23 23:05 12/19/23 23:05 12/19/23 23:05 12/19/23 23:05 12/19/23 23:05
I&O
12/19/23 12/20/23 12/21/23
06:59 06:59 06:59
Intake Total 1180 / 1180 960 / 960
Output Total 600 / 600 650 / 650
Balance 580 / 580 310 / 310
[2023-12-20 07:35] VITALS: BP 132/85
[2023-12-20 08:24] LABS: Hematocrit 44.3 % (39.0-52.0); Hemoglobin 15.2 g/dL (13.0-18.0); Mean Corp Hgb Conc. 34.3 g/dL (33.0-37.0); Mean Corpuscular Hgb 30.1 pg (27.0-31.0); Mean Corpuscular Volume 87.7 fL (80.0-94.0); Mean Platelet Volume 9.7 fL (7.4-10.4); Platelet Count 200 10^3/uL (130-400); Red Blood Cell Count 5.05 10^6/uL (4.70-6.10); Red Cell Dist. Width 13.6 % (11.5-14.5); White Blood Cell Count 16.7 10^3/uL (4.8-10.8)
[2023-12-20] MEDS: NOVOLOG FLEXPEN 6 UNITS SC ×2 (08:37→13:09)
[2023-12-20] MEDS: NOVOLOG FLEXPEN-HIGH RESISTANCE SC ×2 (08:38→13:09)
[2023-12-20] MEDS: ASPIR LOW (ENTERIC COATED) 81 MG PO (08:38)
[2023-12-20] MEDS: ZESTRIL 40 MG PO (08:38)
[2023-12-20] MEDS: COLACE PO ×2 (08:39→08:59)
[2023-12-20] MEDS: SENOKOT PO ×2 (08:40→08:59)
[2023-12-20] MEDS: TYLENOL 650 MG PO ×2 (08:40→13:38)
[2023-12-20] MEDS: NEURONTIN 800 MG PO (08:40)
[2023-12-20] MEDS: NEURONTIN 400 MG PO (08:40)
[2023-12-20] MEDS: TOPROL XL 100 MG PO (08:41)
[2023-12-20] MEDS: NORVASC 10 MG PO (08:41)
[2023-12-20] MEDS: CELEXA 20 MG PO (08:44)
[2023-12-20] MEDS: KLONOPIN 0.5 MG PO (08:45)
[2023-12-20] MEDS: PLAVIX 75 MG PO (08:45)
[2023-12-20] MEDS: IMDUR (EXTENDED RELEASE) 30 MG PO (08:45)
[2023-12-20] MEDS: PEPCID 20 MG PO (08:45)
[2023-12-20 08:47] LABS: Blood Urea Nitrogen 23 mg/dl (9-20); Calcium 8.9 mg/dl (8.4-10.2); Carbon Dioxide 27 mmol/L (22-30); Chloride 97 mmol/L (98-107); Estimated Creatinine Clearance > 125 ml/min; Glucose 134 mg/dl (70-99); Potassium 3.8 mmol/L (3.5-5.1); Sodium 133 mmol/L (135-145); eGFR > 60.00
[2023-12-20 10:00] VITALS: BMI 30.6
[2023-12-20 11:39] LABS: Glucose - Point of Care 127 mg/dl (70-99)
--- NOTE | 2023-12-20 11:40 | CM ---
Spoke with attending who stated that patient is medically cleared for discharge back to [facility]. Spoke with Fermín in admissions who stated that no auth is needed as patient is [place].
Ycfjpu-[phone] and fax# [phone].
Will set patient up to transfer.
Plan: Case management will continue to follow and assist with discharge planning. Back to [facility] today.
[2023-12-20] MEDS: FEOSOL 325 MG PO (13:36)
--- NOTE | 2023-12-20 14:43 | W.DCSUMMARY ---
Discharge Summary
Discharge Data
Date of Admission: 12/17/23
Date of Discharge: 12/20/23
-
Pending Results: No
Hospital Course
Primary diagnoses:
Acute left femoral neck fracture s/p Left hip hemiarthroplasty on 12/18/23
Secondary diagnoses:
Acute hypoxemic respiratory failure
Leukocytosis, reactive
Type 2 diabetes mellitus
h/o myocardial infarction
Intermittent hypoxemic respiratory insufficiency due to allergies
h/o cerebrovascular
Essential hypertension
Consultants:
Orthopedics
Imaging:
L hip Xray: Transcervical left femoral neck fracture with mild displacement and varus angulation. No definite intra-articular or intertrochanteric extension or dislocation. Mild degenerative changes of both hips. Mild degenerative changes of the
pubis symphysis, bilateral sacroiliac joints and partially visualized lower lumbar spine. Soft tissues are grossly unremarkable.
CT brain: There are no acute intracranial abnormalities. There is moderate cerebellar atrophy and mild supratentorial cortical atrophy. 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
CXR: No acute disease of the chest. Moderate left lower lobe atelectasis versus scarring. New
63-year-old male who presented with a mechanical fall resulting in a left femur fracture resulting in H&P done on admission. Hospital course by problem list:
Acute L femoral neck fx: Patient underwent Left hip hemiarthroplasty on 12/18/23 and tolerated the procedure well.
Acute hypoxemic respiratory failure: Postoperatively the patient was requiring up to 5L NC O2 and was subsequently weaned to room air. He was afebrile and without pneumonia on chest x-ray. He had a reactive
Discharge Plan
-
Patient Disposition: Prison/SNF
Discharge Diagnosis/Procedures: Acute L femoral neck fracture s/p Left hip hemiarthroplasty on 12/18/23
Condition: Good
Diet: Diabetic, Carb Controlled
Activity: As tolerated
Driving Restrictions: No driving
Blood Work: BMP and CBC in 1 week, script from PCP
Referrals:
Martynec,Declan, MD [Family Provider] - in less than 1 week
Prescriptions:
New
aspirin 81 mg Tablet,Delayed Release (Dr/Ec)
81 mg PO DAILY Qty: 0 0RF
docusate sodium 100 mg Capsule
100 mg PO BID Qty: 0 0RF
Continued
clonazepam 0.5 MG tablet
0.5 mg PO BID
clopidogrel 75 MG tablet
75 mg PO DAILY
citalopram 20 MG tablet
20 mg PO DAILY
tamsulosin 0.4 MG capsule
0.4 mg PO QPM
gabapentin 800 MG tablet
800 mg PO TID
amlodipine 10 MG tablet
10 mg PO DAILY
nitroglycerin 0.4 MG tablet, sublingual
0.4 mg sublingual [id number] PRN (Reason: Chest pain)
amitriptyline 50 MG tablet
50 mg PO HS
famotidine 20 MG tablet
20 mg PO DAILY
insulin aspart U-100 [Novolog U-100 Insulin aspart] 1,000 UNITS/10 ML solution
6 units SC AC
insulin glargine [Basaglar KwikPen U-100 Insulin] 100 UNIT/ML insulin pen
32 unit SQ HS
acetaminophen 325 MG tablet
650 mg PO Q4HPRN PRN (Reason: mild pain)
atorvastatin 10 mg Tablet
10 mg PO QPM
dextromethorphan-guaifenesin [Diabetic Tussin DM] 10-100 mg/5 mL Liquid
10 ml PO Q4HPRN PRN (Reason: cough)
metoprolol succinate 100 mg Tablet Extended Release 24 Hr
100 mg PO DAILY
gabapentin 400 mg Capsule
400 mg PO TID
melatonin 3 mg Tablet
3 mg PO HS
triamcinolone acetonide 0.1 % Cream
1 applic TOPICAL BIDPRN PRN (Reason: eczema)
magnesium hydroxide [Milk of Magnesia] 400 mg/5 mL Suspension
30 ml PO HSPRN PRN (Reason: constipation)
ferrous sulfate 325 mg (65 mg iron) Tablet
325 mg PO MOWEFR
cabergoline 0.5 mg Tablet
0.25 mg PO TU@1830
fluticasone propionate 50 mcg/actuation [place],Suspension
1 spray INTRANASAL DAILY
metformin 500 mg Tablet Extended Release 24 Hr
1,000 mg PO QPM
Saline Nasal Mist 0.65 % Aerosol,[place]
1 spray INTRANASAL Q1HPRN PRN (Reason: CONGESTION)
cholecalciferol (vitamin D3) 1,250 mcg (50,000 unit) Tablet
1,250 mcg PO QMONTH
isosorbide mononitrate 30 MG tablet extended release 24 hr
30 mg PO DAILY
Changed
lisinopril [Zestril] 20 MG tablet
40 mg PO DAILY Qty: 0 0RF
Discharge Orders:
Discharge Patient (As Directed); Ordered 12/20/23
Ordered By: Alexis Jenkins
Discharge Date and Time
Print Language: BAHRAINI
[2023-12-20 15:00] VITALS: BP 153/81
[2023-12-20 16:40] LABS: Glucose - Point of Care 197 mg/dl (70-99)
== END 2023-12-20 17:22 | DRG 521 ==
LOC: 2 SOUTH 12:49
PROVIDERS: ADMITTING PHYSICIAN Internal Medicine; EMERGENCY PHYSICIAN Emergency Medicine; FAMILY PHYSICIAN Internal Medicine Geriatric Medicine; OTHER PHYSICIAN Orthopaedic Surgery
PROC: 5A0935A Assistance with Respiratory Ventilation, Less than 24 Consecutive Hours, High Flow/Velocity Cannula (ICD-10-PCS; 2023-12-18)
PROC: 0SRS0J9 Replacement of Left Hip Joint, Femoral Surface with Synthetic Substitute, Cemented, Open Approach (ICD-10-PCS; 2023-12-18)
DX: S72.032A Displaced midcervical fracture of left femur, initial encounter for closed fracture (principal); J96.01 Acute respiratory failure with hypoxia; I50.9 Heart failure, unspecified; E78.00 Pure hypercholesterolemia, unspecified; I11.0 Hypertensive heart disease with heart failure; R10.30 Lower abdominal pain, unspecified; E66.9 Obesity, unspecified; E11.9 Type 2 diabetes mellitus without complications; F31.9 Bipolar disorder, unspecified; F41.9 Anxiety disorder, unspecified; K21.9 Gastro-esophageal reflux disease without esophagitis; L40.9 Psoriasis, unspecified; D72.829 Elevated white blood cell count, unspecified; W05.0XXA Fall from non-moving wheelchair, initial encounter; Y93.E9 Activity, other interior property and clothing maintenance; Y92.099 Unspecified place in other non-institutional residence as the place of occurrence of the external cause; Z66 Do not resuscitate; Z68.30 Body mass index [BMI] 30.0-30.9, adult; Z79.02 Long term (current) use of antithrombotics/antiplatelets; Z79.84 Long term (current) use of oral hypoglycemic drugs; Z79.3 Long term (current) use of hormonal contraceptives; Z79.4 Long term (current) use of insulin; I25.2 Old myocardial infarction; Z86.73 Personal history of transient ischemic attack (TIA), and cerebral infarction without residual deficits; Z86.74 Personal history of sudden cardiac arrest
CPT/HCPCS: 70450; 71046; 73502; 80048; 80053; 82962; 85025; 85027; 85610; 85730; 86850; 86900; 86901; 87070; 93005; 96374; 97163; 97167; 99285; C1713; C1776

== ENCOUNTER → 2023-12-24 10:25 | Outpatient (REF) | payer OTHER, SELFPAY ==
[2023-12-24 11:29] LABS: Albumin 3.2 g/dl (3.5-5.0); Blood Urea Nitrogen 16 mg/dl (9-20); Calcium 8.8 mg/dl (8.4-10.2); Carbon Dioxide 27 mmol/L (22-30); Chloride 99 mmol/L (98-107); Glucose 98 mg/dl (70-99); Iron 59 ug/dl (49-181); Phosphorus 4.2 mg/dl (2.5-4.5); Potassium 4.7 mmol/L (3.5-5.1); Sodium 134 mmol/L (135-145); eGFR > 60.00
[2023-12-24 11:37] LABS: % Basophils 0.9 % (0-2); % Eosinophils 5.7 % (0-6); % Immature Granulocytes 0.7 % (0-0.5); % Monocytes 10.1 % (1.7-9.3); % Neutrophils 62.6 % (42.2-75.2); Absolute Basophils 0.1 10^3/uL (0-0.2); Absolute Eosinophils 0.5 10^3/uL (0-0.7); Absolute Immature Granulocytes 0.1 10^3/uL (0-0.05); Absolute Lymphocytes 1.8 10^3/uL (1.2-3.4); Absolute Monocytes 0.9 10^3/uL (0.1-0.6); Absolute Neutrophils 5.6 10^3/uL (1.4-6.5); Hematocrit 41.9 % (39.0-52.0); Hemoglobin 14.1 g/dL (13.0-18.0); Mean Corp Hgb Conc. 33.7 g/dL (33.0-37.0); Mean Corpuscular Hgb 29.8 pg (27.0-31.0); Mean Corpuscular Volume 88.6 fL (80.0-94.0); Mean Platelet Volume 10.3 fL (7.4-10.4); Nucleated Red Blood Cells % 0 % (-); Platelet Count 232 10^3/uL (130-400); Red Blood Cell Count 4.73 10^6/uL (4.70-6.10); Red Cell Dist. Width 13.2 % (11.5-14.5)
[2023-12-24 11:38] LABS: Percent Saturation 20 % (20-50); Total Iron Binding Capacity 285 ug/dl (261-462)
== END ==
LOC: OLABN 10:25
PROVIDERS: ATTENDING PHYSICIAN Internal Medicine Geriatric Medicine
DX: I10 Essential (primary) hypertension (principal); D50.8 Other iron deficiency anemias
CPT/HCPCS: 36415; 80069; 82728; 83540; 83550; 85025

== ENCOUNTER → 2023-12-26 09:53 | Outpatient (REF) | payer OTHER, SELFPAY ==
[2023-12-26 10:47] LABS: Hematocrit 41.7 % (39.0-52.0); Hemoglobin 13.9 g/dL (13.0-18.0); Mean Corp Hgb Conc. 33.3 g/dL (33.0-37.0); Mean Corpuscular Hgb 29.9 pg (27.0-31.0); Mean Corpuscular Volume 89.7 fL (80.0-94.0); Mean Platelet Volume 9.8 fL (7.4-10.4); Platelet Count 290 10^3/uL (130-400); Red Blood Cell Count 4.65 10^6/uL (4.70-6.10); Red Cell Dist. Width 13.3 % (11.5-14.5); White Blood Cell Count 9.1 10^3/uL (4.8-10.8)
[2023-12-26 11:53] LABS: Blood Urea Nitrogen 13 mg/dl (9-20); Calcium 8.9 mg/dl (8.4-10.2); Carbon Dioxide 27 mmol/L (22-30); Chloride 100 mmol/L (98-107); Glucose 77 mg/dl (70-99); Potassium 4.7 mmol/L (3.5-5.1); Sodium 134 mmol/L (135-145); eGFR > 60.00
== END ==
LOC: OLABN 09:53
PROVIDERS: ATTENDING PHYSICIAN Internal Medicine Geriatric Medicine
DX: I10 Essential (primary) hypertension (principal)
CPT/HCPCS: 36415; 80048; 85027

== ENCOUNTER → 2024-01-27 10:54 | Outpatient (REF) | payer OTHER, SELFPAY ==
[2024-01-27 12:11] LABS: Hematocrit 45.7 % (39.0-52.0); Hemoglobin 15.4 g/dL (13.0-18.0); Mean Corp Hgb Conc. 33.7 g/dL (33.0-37.0); Mean Corpuscular Volume 89.1 fL (80.0-94.0); Mean Platelet Volume 9.6 fL (7.4-10.4); Platelet Count 288 10^3/uL (130-400); Red Blood Cell Count 5.13 10^6/uL (4.70-6.10); White Blood Cell Count 10.5 10^3/uL (4.8-10.8)
[2024-01-27 12:21] LABS: ALT (SGPT) 16 U/L (0-50); AST (SGOT) 22 U/L (17-59); Albumin 4.1 g/dl (3.5-5.0); Alkaline Phosphatase 116 U/L (38-126); Blood Urea Nitrogen 9 mg/dl (9-20); Calcium 9.5 mg/dl (8.4-10.2); Carbon Dioxide 29 mmol/L (22-30); Chloride 101 mmol/L (98-107); Glucose 101 mg/dl (70-99); HDL Cholesterol 35 mg/dl; Iron 78 ug/dl (49-181); LDL Cholesterol, Calculated 58 mg/dl; Potassium 5.5 mmol/L (3.5-5.1); Sodium 138 mmol/L (135-145); Total Bilirubin 0.4 mg/dl (0.2-1.3); Total Cholesterol 129 mg/dl (50-199); Total Protein 6.6 g/dl (6.3-8.2); Triglyceride 181 mg/dl (10-149); Very Low Density Lipoprotein 36 mg/dl (0-30); eGFR > 60.00
[2024-01-27 12:34] LABS: Free T4 0.75 ng/dl (0.78-2.19); Vitamin D, 25-OH*** 44.3 ng/mL (30-80)
== END ==
LOC: OLABN 10:54
PROVIDERS: ATTENDING PHYSICIAN Internal Medicine Geriatric Medicine
DX: I63.9 Cerebral infarction, unspecified (principal); D55.9 Anemia due to enzyme disorder, unspecified; E78.5 Hyperlipidemia, unspecified; D50.8 Other iron deficiency anemias; E07.9 Disorder of thyroid, unspecified
CPT/HCPCS: 80053; 80061; 82306; 83540; 84439; 84443; 85027

== ENCOUNTER → 2024-02-17 13:24 | Outpatient (REF) | payer OTHER, SELFPAY ==
[2024-02-17 19:05] LABS: Glucose 96 mg/dl (70-99)
[2024-02-17 20:13] LABS: Prolactin 5.8 ng/ml (3.7-17.9)
[2024-02-18 09:23] LABS: Glycohemoglobin (HgbA1c) 5.6 % (4.0-5.6)
== END ==
LOC: OLABN 13:24
PROVIDERS: ATTENDING PHYSICIAN Internal Medicine Geriatric Medicine
DX: E11.649 Type 2 diabetes mellitus with hypoglycemia without coma (principal); E22.1 Hyperprolactinemia; E11.9 Type 2 diabetes mellitus without complications
CPT/HCPCS: 36415; 82947; 83036; 84146

== ENCOUNTER → 2024-05-01 12:30 | Outpatient (REF) | payer OTHER, SELFPAY ==
[2024-05-01 16:32] LABS: Urine Albumin Trace (Neg - Trace); Urine Bilirubin Negative (Negative); Urine Character Clear (Clear); Urine Color Yellow; Urine Glucose Negative (Negative); Urine Ketone Negative (Negative); Urine Leukocyte Trace (Negative); Urine Nitrite Negative (Negative); Urine Occult Blood Negative (Negative); Urine Specific Gravity 1.015 (<1.030); Urine Urobilinogen 1+ (Neg - 1+)
[2024-05-01 17:22] LABS: Urine Bacteria Many (Negative); Urine Red Blood Cell 0-2 /HPF (0-2); Urine Sperm Seen
== END ==
LOC: OLABN 12:30
PROVIDERS: ATTENDING PHYSICIAN Internal Medicine Geriatric Medicine
DX: R30.0 Dysuria (principal)
CPT/HCPCS: 81003; 81015; 87077; 87086; 87186

== ENCOUNTER → 2024-05-18 08:57 | Outpatient (REF) | payer OTHER, SELFPAY ==
[2024-05-18 12:43] LABS: Glucose 107 mg/dl (70-99)
== END ==
LOC: OLABN 08:57
PROVIDERS: ATTENDING PHYSICIAN Internal Medicine Geriatric Medicine
DX: E11.649 Type 2 diabetes mellitus with hypoglycemia without coma (principal); E22.1 Hyperprolactinemia
CPT/HCPCS: 36415; 82947; 83036; 84146

== ENCOUNTER → 2024-06-01 12:01 | Outpatient (REF) | payer OTHER, MEDICAID, SELFPAY ==
[2024-06-02 13:39] LABS: Urine Albumin 1+ (Neg - Trace); Urine Bilirubin Negative (Negative); Urine Character Very Cloudy (Clear); Urine Color Yellow; Urine Glucose Negative (Negative); Urine Ketone Negative (Negative); Urine Leukocyte 2+ (Negative); Urine Nitrite Negative (Negative); Urine Occult Blood 2+ (Negative); Urine Urobilinogen Negative (Neg - 1+)
[2024-06-02 14:16] LABS: Urine White Cell >100 /HPF (0-5)
== END ==
LOC: OLABN 12:01
PROVIDERS: ATTENDING PHYSICIAN Internal Medicine Geriatric Medicine
DX: R82.90 Unspecified abnormal findings in urine (principal)
CPT/HCPCS: 81003; 81015; 87077; 87086

== ENCOUNTER → 2024-08-03 12:53 | Outpatient (REF) | payer OTHER, SELFPAY ==
[2024-08-03 13:27] LABS: % Basophils 1.2 % (0-2); % Eosinophils 6.5 % (0-6); % Immature Granulocytes 0.3 % (0-0.5); % Lymphocytes 25.8 % (20.5-51.1); % Monocytes 9.7 % (1.7-9.3); % Neutrophils 56.5 % (42.2-75.2); Absolute Basophils 0.1 10^3/uL (0-0.2); Absolute Eosinophils 0.5 10^3/uL (0-0.7); Absolute Monocytes 0.8 10^3/uL (0.1-0.6); Absolute Neutrophils 4.4 10^3/uL (1.4-6.5); Hemoglobin 15.2 g/dL (13.0-18.0); Mean Corp Hgb Conc. 33.8 g/dL (33.0-37.0); Mean Corpuscular Hgb 30.8 pg (27.0-31.0); Mean Corpuscular Volume 91.3 fL (80.0-94.0); Mean Platelet Volume 9.8 fL (7.4-10.4); Nucleated Red Blood Cells % 0 % (-); Platelet Count 257 10^3/uL (130-400); Red Blood Cell Count 4.93 10^6/uL (4.70-6.10); Red Cell Dist. Width 13.7 % (11.5-14.5); White Blood Cell Count 7.7 10^3/uL (4.8-10.8)
[2024-08-03 13:59] LABS: ALT (SGPT) 14 U/L (0-50); AST (SGOT) 14 U/L (17-59); Albumin 3.9 g/dl (3.5-5.0); Alkaline Phosphatase 93 U/L (38-126); Blood Urea Nitrogen 5 mg/dl (9-20); Calcium 8.8 mg/dl (8.4-10.2); Carbon Dioxide 29 mmol/L (22-30); Chloride 98 mmol/L (98-107); Glucose 198 mg/dl (70-99); HDL Cholesterol 31 mg/dl; LDL Cholesterol, Calculated 49 mg/dl; Potassium 4.8 mmol/L (3.5-5.1); Sodium 135 mmol/L (135-145); Total Bilirubin 0.2 mg/dl (0.2-1.3); Total Cholesterol 110 mg/dl (50-199); Total Protein 6.4 g/dl (6.3-8.2); Triglyceride 150 mg/dl (10-149); Very Low Density Lipoprotein 30 mg/dl (0-30); eGFR > 60.00
== END ==
LOC: OLABN 12:53
PROVIDERS: ATTENDING PHYSICIAN Internal Medicine Geriatric Medicine
DX: D59.9 Acquired hemolytic anemia, unspecified (principal); E78.5 Hyperlipidemia, unspecified; I63.9 Cerebral infarction, unspecified
CPT/HCPCS: 36415; 80053; 80061; 85025

== ENCOUNTER → 2024-08-17 10:41 | Outpatient (REF) | payer OTHER, SELFPAY ==
[2024-08-17 11:36] LABS: Glucose 132 mg/dl (70-99)
[2024-08-17 12:25] LABS: Glycohemoglobin (HgbA1c) 6.4 % (4.0-5.6)
== END ==
LOC: OLABN 10:41
PROVIDERS: ATTENDING PHYSICIAN Internal Medicine Geriatric Medicine
DX: E11.649 Type 2 diabetes mellitus with hypoglycemia without coma (principal); E11.9 Type 2 diabetes mellitus without complications
CPT/HCPCS: 36415; 82947; 83036

== ENCOUNTER → 2024-11-16 11:53 | Outpatient (REF) | payer OTHER, SELFPAY ==
[2024-11-16 12:49] LABS: Glucose 257 mg/dl (70-99)
[2024-11-16 15:09] LABS: Glycohemoglobin (HgbA1c) 5.9 % (4.0-5.6)
[2024-11-16 20:02] LABS: Prolactin 4.9 ng/ml (3.7-17.9)
== END ==
LOC: OLABN 11:53
PROVIDERS: ATTENDING PHYSICIAN Internal Medicine Geriatric Medicine
DX: E78.5 Hyperlipidemia, unspecified (principal); E11.649 Type 2 diabetes mellitus with hypoglycemia without coma; D59.9 Acquired hemolytic anemia, unspecified
CPT/HCPCS: 36415; 82947; 83036; 84146

== ENCOUNTER → 2025-02-01 10:46 | Outpatient (REF) | payer OTHER, SELFPAY ==
[2025-02-01 11:42] LABS: Hematocrit 45.6 % (39.0-52.0); Hemoglobin 15.9 g/dL (13.0-18.0); Mean Corp Hgb Conc. 34.9 g/dL (33.0-37.0); Mean Corpuscular Volume 90.1 fL (80.0-94.0); Platelet Count 230 10^3/uL (130-400); Red Cell Dist. Width 13.2 % (11.5-14.5)
[2025-02-01 11:59] LABS: HDL Cholesterol 28 mg/dl; Iron 99 ug/dl (49-181); LDL Cholesterol, Calculated 23 mg/dl; Very Low Density Lipoprotein 78 mg/dl (0-30)
[2025-02-01 12:18] LABS: Vitamin D, 25-OH*** 23.8 ng/mL (30-80)
[2025-02-01 12:31] LABS: TSH 2.62 uIU/ml (0.47-4.68)
== END ==
LOC: OLABN 10:46
PROVIDERS: ATTENDING PHYSICIAN Internal Medicine Geriatric Medicine
DX: E23.7 Disorder of pituitary gland, unspecified (principal); D50.8 Other iron deficiency anemias; E78.5 Hyperlipidemia, unspecified; D59.9 Acquired hemolytic anemia, unspecified
CPT/HCPCS: 36415; 80061; 82306; 83540; 84439; 84443; 85027

== ENCOUNTER → 2025-02-15 10:53 | Outpatient (REF) | payer OTHER, SELFPAY ==
[2025-02-15 11:52] LABS: Glucose 222 mg/dl (70-99)
[2025-02-15 13:13] LABS: Glycohemoglobin (HgbA1c) 6.4 % (4.0-5.6)
== END ==
LOC: OLABN 10:53
PROVIDERS: ATTENDING PHYSICIAN Internal Medicine Geriatric Medicine
DX: E11.649 Type 2 diabetes mellitus with hypoglycemia without coma (principal); E11.9 Type 2 diabetes mellitus without complications
CPT/HCPCS: 36415; 82947; 83036

== ENCOUNTER → 2025-05-17 09:50 | Outpatient (REF) | payer OTHER, SELFPAY ==
[2025-05-17 10:58] LABS: Glucose 109 mg/dl (70-99)
[2025-05-17 11:38] LABS: Glycohemoglobin (HgbA1c) 6.8 % (4.0-5.9)
[2025-05-19 10:03] LABS: Vitamin D, 25-OH*** 21.2 ng/mL (30-80)
== END ==
LOC: OLABN 09:50
PROVIDERS: ATTENDING PHYSICIAN Internal Medicine Geriatric Medicine
DX: E11.649 Type 2 diabetes mellitus with hypoglycemia without coma (principal); E11.9 Type 2 diabetes mellitus without complications; E22.1 Hyperprolactinemia
CPT/HCPCS: 36415; 82306; 82947; 83036; 84146